=== PATIENT | male | born 1965 | race Two or more races ===

== ENCOUNTER 2024-09-12 13:19 | Outpatient (AMB) | payer MEDICAID, SELFPAY ==
--- NOTE | 2024-09-12 13:30 | ORTHONT_ITS ---
Vital signs 09/12/24 13:31 Height 1.8 m Height Method Stated Weight 99.082 kg Weight Measurement Method Standing Scale BMI 30.4 BP 153/93 H Blood Pressure Source Automatic Cuff Blood Pressure Location Right Upper Arm Position Sitting Respiration 18 Pulse 96 Pulse Source Monitor Temp 96.7 F L Temp Source Temporal Artery Scan Pulse Oximetry (%) 97 Oxygen Delivery Method Room Air Med/Allergies Allergies & Medications Allergies No Known Allergies Allergy (Verified 09/12/24 13:32) Medication Reconciliation atorvastatin 20 mg tablet 20 mg PO QDAY 05/15/24 [History Confirmed 09/12/24] empagliflozin 10 mg tablet (Jardiance) 10 mg PO QAM 05/15/24 [History Confirmed 09/12/24] lisinopril 10 mg tablet 10 mg PO QDAY 05/15/24 [History Confirmed 09/12/24] semaglutide 0.25 mg or 0.5 mg (2 mg/3 mL) subcutaneous pen injector (Ozempic) 0.05 mg subcut QWEEK 05/15/24 [History Confirmed 09/12/24] hydrocodone 5 mg-acetaminophen 325 mg tablet 1 tab PO BID PRN 09/12/24 [History Confirmed 09/12/24] Subjective Visit Visit for: new patient and knee Immunization / Flu Flu Vaccine in the Last 12 Months: No Flu Vaccine Exclusion Criteria: No Exclusion Criteria History of Present Illness Chief complaint: RIGHT KNEE PAIN Patient is a 58-year-old male with bilateral knee pain and valgus arthritis. There is [id number]. We have been treating him nonoperatively for over a year. He has tried physical therapy, over 6 injections, and anti- inflammatories. He previously had a spider bite. It was slow to heal. The wound took over a year for it to heal. It has now healed completely.Patient is a diabetic and he reports his hemoglobin A1c is 6.2. He is getting shoulder surgery in 2 weeks. Personal History Red flag PMH: other (specify) (HISTORY OF DIABETES ) and none (NON SMOKER ) Pain Pain level (0-10): 9 Pain duration: ALL DAY Pain location: inside (medial), outside (lateral), anterior and posterior Pain quality: sharp Pain timing: night Associated signs & symptoms: stiffness Ambulatory data Ambulatory device: none Treatments Improvement with previous injections: No Improvement with PT: No Improvement with NSAIDS: n/a Review of Systems Review of Systems: All systems negative unless otherwise noted in HPI. Exam Exam Patient is in no acute distress and is cooperative with the examination today. Breathing is nonlabored. In no respiratory distress. Bilateral extremities were evaluated and demonstrates sensation intact to light touch. Palpable pedal pulses are present. No significant edema is present. Bilateral hips were examined. The patient has no pain with log roll of the hips. Internal rotation to 30 degrees and external rotation to 30 degrees is painless. Negative FADIR. Bilateral knees are in significant valgus alignment. Range of motion 0 to 100 degrees. She has a wound over the left lateral ankle. This has healed completely at this point. Assessment and Plan Problem List (1) Bilateral knee pain: Status: Acute Plan: Patient is a 58-year-old male with bilateral valgus knee arthritis. He previously had a spider bite and open wound. It is now healed completely. We thus discussed total knee replacement in great detail. We would start on the right first. He told us his hemoglobin A1c is 6.9. WHe is getting shoulder surgery before his knee replacement. We will see him back in approximately 6 weeks once his shoulder is full events. (2) Bilateral primary osteoarthritis of knee: Status: Acute Office Procedures GNS Level of Care Nursing/Assessment Patient Status: Established Patient Nursing Assessment/Reassesment: Medication Reconciliation, Update PMH in EMR and Vital Signs Coordination of Care: Complex Care and Chronic Disease 1-5, Education Complex Pt/Fam, Consent,records obtained, informed consent, Results/Orders obtained and Staff clarify orders Established Patient Charge Established Patient Point Assignment: 95 Established Patient Point Charge: EP Level 3 (80-115) Past Medical History Past Medical History Have you ever been diagnosed with any of the following: Neurological Problems Cerebrovascular Accident (CVA): No Dementia: No Alzheimer's Disease: No Brain Tumor: No Meningitis: No Seizures: No Epilepsy: No Multiple Sclerosis: No Cerebral Palsy: No Amyotrophic Lateral Sclerosis (ALS/Janis Gehrig's): No Guillain-[place] Syndrome: No Paralysis: No Mckeon's Palsy: No Migraine: No Head Trauma: No Cardiology Problems Hypercholesterolemia: Yes Congestive Heart Failure: No Hypertension: Yes Respiratory Problems Chronic Obstructive Pulmonary Disease (COPD): No Smoking: No Smoking Cessation Counseling: No Smoking Exposure: No Tobacco Use: No Stomache/Intestinal Problems Hepatitis: No Genital/Urinary Problems Renal Disease: No Benign Prostatic Hyperplasia: Yes Musculoskeletal Problems Gout: Yes Endocrine Problems Diabetes Mellitus Type 1: No Diabetes Mellitus Type 2: Yes Other Problems Hospitalization: Yes (2020 8 weeks for spider bite left lower leg) Shingles: No Blood Transfusions: No Blood Transfusion Reaction: No Anesthesia Reactions: No Chicken Pox: Yes Cancer: No
[2024-09-12 13:31] VITALS: BP 153/93; PULSE 96; RESP 18; TEMP 35.9; O2SAT 97; BMI 30.4
== END 2024-09-12 14:01 | disposition home or self-care (01) ==
LOC: HODSRG 13:19
PROVIDERS: PCP Physician Assistant Medical; Referring Provider Physician Assistant Medical; Supervising Provider Orthopaedic Surgery Adult Reconstructive Orthopaedic Surgery; Visit Provider Orthopaedic Surgery Adult Reconstructive Orthopaedic Surgery
DX: M25.561 Pain in right knee (principal); M25.562 Pain in left knee; M17.0 Bilateral primary osteoarthritis of knee; I10 Essential (primary) hypertension; E78.00 Pure hypercholesterolemia, unspecified; E11.9 Type 2 diabetes mellitus without complications
CPT/HCPCS: 99213; G0463

== ENCOUNTER 2024-10-24 09:08 | Outpatient (AMB) | payer MEDICAID, SELFPAY ==
[2024-10-24 09:39] VITALS: BP 125/81; PULSE 96; RESP 16; TEMP 36.7; O2SAT 97; BMI 30.4
--- NOTE | 2024-10-24 09:39 | ORTHONT_ITS ---
Vital signs 10/24/24 09:39 Height 1.8 m Height Method Stated Weight 98.94 kg Weight Measurement Method Standing Scale BMI 30.4 BP 125/81 Blood Pressure Source Automatic Cuff Blood Pressure Location Right Upper Arm Position Sitting Respiration 16 Pulse 96 Pulse Source Monitor Temp 98.1 F Temp Source Temporal Artery Scan Pulse Oximetry (%) 97 Oxygen Delivery Method Room Air Med/Allergies Allergies & Medications Allergies No Known Allergies Allergy (Verified 10/24/24 09:40) Medication Reconciliation atorvastatin 20 mg tablet 20 mg PO QDAY 05/15/24 [History Confirmed 10/24/24] empagliflozin 10 mg tablet (Jardiance) 10 mg PO QAM 05/15/24 [History Confirmed 10/24/24] lisinopril 10 mg tablet 10 mg PO QDAY 05/15/24 [History Confirmed 10/24/24] semaglutide 0.25 mg or 0.5 mg (2 mg/3 mL) subcutaneous pen injector (Ozempic) 0.05 mg subcut QWEEK 05/15/24 [History Confirmed 10/24/24] hydrocodone 5 mg-acetaminophen 325 mg tablet 1 tab PO BID PRN 09/12/24 [History Confirmed 10/24/24] Exam Exam Patient is in no acute distress and is cooperative with the examination today. Breathing is nonlabored. In no respiratory distress. Bilateral extremities were evaluated and demonstrates sensation intact to light touch. Palpable pedal pulses are present. No significant edema is present. Bilateral hips were examined. The patient has no pain with log roll of the hips. Internal rotation to 30 degrees and external rotation to 30 degrees is painless. Negative FADIR. Bilateral knees are in significant valgus alignment. Range of motion 0 to 100 degrees. His skin is clean dry and intact intervals well-healed on both sides. The toe ulcer is now gone Assessment and Plan Problem List (1) Bilateral knee pain: Status: Acute Plan: Patient is a 58-year-old male with bilateral valgus knee arthritis. He previously had a spider bite and open wound. It is now healed completely. We thus discussed total knee replacement in great detail. We would start on the right first. He told us his hemoglobin A1c is 6.9. He also recovered well from his shoulder surgery recently. We again discussed total knee replacement in great detail. We discussed that he is Higher rate of infection because of this. The nature and purpose of the total knee replacement, alternative method(s) of treatment, the material risks involved, and the possibility of complications were fully explained to the patient. The patient does NOT have any of the following contraindications to TKA: - Active infection of the knee joint, OR - Active systemic bacteremia, OR - Active skin infection or open wound at surgical site, OR - Neuropathic arthritis, OR - Severe, rapidly progressive neurological disease, OR - Severe medical condition that makes risks of surgery outweigh the potential benefit The patient was told the most common risks and complications associated with a total knee replacement include, but are not limited to: blood clots in the leg, fatal pulmonary embolism, dislocation of the prosthesis, intraoperative and postoperative fractures of the femur or tibia, infection, failure of the prosthesis or grafting materials, complications from anesthesia, reactions to blood transfusions, postoperative leg length inequality, instability of the knee replacement, nerve damage or injury, vascular injury, delayed wound healing, infection, other injury or even . In addition, there are risks associated with anesthesia given during this operation. Also, the patient was told that after undergoing a total knee replacement there may still be persistent pain or disability. The patient was informed that the success of this operation in part depends upon the mechanical devices which are going to be implanted and that these devices can fail or malfunction, and may need to be repaired or replaced and there are no guarantees as to the longevity of this device or its parts and that it or its parts could fail prematurely. The patient was also notified that during the course of surgery, there may be a need to use bone graft from donors, and that any bone graft used will be carefully screened for communicable diseases, including AIDS, hepatitis, Woody-Creutzfeldt, or other diseases, but despite the screening procedures, there is a small chance that they could contract one of these diseases. Finally, the patient was asked to follow completely and fully with all advice and recommended treatments, and that recovery and ultimate outcome are affected by their compliance with recommended treatment. We discussed the risks, benefits and treatment alternatives, and the patient is interested in proceeding with surgery. We will try to set this up as expeditiously as possible. (2) Bilateral primary osteoarthritis of knee: Status: Acute Office Procedures GNS Level of Care Nursing/Assessment Patient Status: Established Patient Nursing Assessment/Reassesment: Medication Reconciliation, Update PMH in EMR and Vital Signs Coordination of Care: Complex Care and Chronic Disease 1-5, Education Complex Pt/Fam, 1 Ins Authorization and Staff clarify orders Established Patient Charge Established Patient Point Assignment: 100 Established Patient Point Charge: EP Level 3 (80-115) MA Intake Visit Data Collection New Patient or Established: Established Patient (seen at [facility] within 3 years) Reason for Visit:: F/U RT KNEE PAIN Seen by Clinical Staff ONLY (RN/MA): No Slps Required: No PCP or OBGYN visit in last 3 months: Yes Questionairres Past Medical History Past Medical History Have you ever been diagnosed with any of the following: Neurological Problems Cerebrovascular Accident (CVA): No Dementia: No Alzheimer's Disease: No Brain Tumor: No Meningitis: No Seizures: No Epilepsy: No Multiple Sclerosis: No Cerebral Palsy: No Amyotrophic Lateral Sclerosis (ALS/Janis Gehrig's): No Guillain-[place] Syndrome: No Paralysis: No Mckeon's Palsy: No Migraine: No Head Trauma: No Cardiology Problems Hypercholesterolemia: Yes Congestive Heart Failure: No Hypertension: Yes Respiratory Problems Chronic Obstructive Pulmonary Disease (COPD): No Smoking: No Smoking Cessation Counseling: No Smoking Exposure: No Tobacco Use: No Stomache/Intestinal Problems Hepatitis: No Genital/Urinary Problems Renal Disease: No Benign Prostatic Hyperplasia: Yes Musculoskeletal Problems Gout: Yes Endocrine Problems Diabetes Mellitus Type 1: No Diabetes Mellitus Type 2: Yes Other Problems Hospitalization: Yes (2020 8 weeks for spider bite left lower leg) Shingles: No Blood Transfusions: No Blood Transfusion Reaction: No Anesthesia Reactions: No Chicken Pox: Yes Cancer: No Subjective Visit Visit for: follow up visit and knee Immunization / Flu Flu Vaccine in the Last 12 Months: No Flu Vaccine Exclusion Criteria: Refused by Patient History of Present Illness Chief complaint: RT KNEE PAIN Date of injury / onset of symptoms: 5 YEARS Anuj is a pleasant 59-year-old male with right knee pain and right knee arthritis. We previously had to cancel his surgery as he had a toe ulcer. He had a history of diabetes and his A1c is currently under 7. He reports that the circle saw operator gave him clearance. I did look at his toes as well as his left leg and it appears to have healed well. We will thus get him set up for surgery again As he is well optimized Pain Pain level (0-10): 8 Pain duration: CONSTANT Pain location: inside (medial), outside (lateral), anterior and posterior Pain quality: sharp and aching Pain timing: night and increases with activity Associated signs & symptoms: stiffness Ambulatory data Ambulatory device: cane (OCCASIONALLY) Treatments Number of previous injections: 4 Improvement with previous injections: Yes Improvement with NSAIDS: n/a Review of Systems Review of Systems: All systems negative unless otherwise noted in HPI.
== END 2024-10-24 10:00 | disposition home or self-care (01) ==
PROVIDERS: PCP Physician Assistant Medical; Referring Provider Physician Assistant Medical; Supervising Provider Orthopaedic Surgery Adult Reconstructive Orthopaedic Surgery; Visit Provider Orthopaedic Surgery Adult Reconstructive Orthopaedic Surgery
DX: M25.562 Pain in left knee (principal); M25.561 Pain in right knee; M21.062 Valgus deformity, not elsewhere classified, left knee; M21.061 Valgus deformity, not elsewhere classified, right knee; M17.0 Bilateral primary osteoarthritis of knee; I10 Essential (primary) hypertension; E78.00 Pure hypercholesterolemia, unspecified; E11.9 Type 2 diabetes mellitus without complications
CPT/HCPCS: 99213; G0463

== ENCOUNTER → 2024-11-13 | Outpatient (CLI) | payer MEDICAID, SELFPAY ==
--- NOTE | 2024-11-13 15:00 | XR_ITS ---
Examination: CT right lower extremity, without contrast. 2-D sagittal reconstructions. 2-D coronal reconstructions. 3-D reconstructions. Date and time of exam:November 13, 2024 1517 hours INDICATIONS: Diagnosis unilateral primary osteoarthritis right knee right knee pain 3 years CTDI: vol (mGy):10.6 DLP: (mGycm):900 Technique: Multiple 1.25 mm axial sections of the right lower extremity without intravenous contrast have been obtained. 2-D sagittal and coronal reconstructions have been obtained. 3-D reconstructions have been obtained. Low dose protocols were performed. One or more of the following dose reduction techniques were used; automated exposure control, adjustment of the mA and/or KV according to patient size, use of iterative reconstruction technique. Findings: Mild osteopenia Mild to moderate narrowing right hip joint No hip fracture or dislocation Advanced tricompartment osteoarthritis, most severe narrowing lateral joint space No fracture or dislocation Mild chronic lateral subluxation patella IMPRESSION: Advanced tricompartment osteoarthritis right knee
== END | disposition home or self-care (01) ==
LOC: CCTX 14:34
PROVIDERS: PCP Physician Assistant Medical; Referring Provider Orthopaedic Surgery Adult Reconstructive Orthopaedic Surgery; Visit Provider Orthopaedic Surgery Adult Reconstructive Orthopaedic Surgery
DX: M17.11 Unilateral primary osteoarthritis, right knee (principal)
CPT/HCPCS: 73700

== ENCOUNTER 2025-08-28 10:56 | Outpatient (AMB) | payer MEDICARE, SELFPAY ==
--- NOTE | 2025-08-28 11:16 | ORTHONT_ITS ---
Vital signs 08/28/25 11:17 Height 1.8 m Height Method Stated Weight 98.543 kg Weight Measurement Method Standing Scale BMI 30.4 BP 132/80 H Blood Pressure Source Automatic Cuff Blood Pressure Location Left Upper Arm Position Sitting Respiration 19 Pulse 84 Pulse Source Monitor Temp 97.5 F Temp Source Temporal Artery Scan Pulse Oximetry (%) 98 Oxygen Delivery Method Room Air Med/Allergies Allergies & Medications Allergies No Known Allergies Allergy (Verified 08/28/25 11:17) Medication Reconciliation atorvastatin 20 mg tablet 20 mg PO QDAY 05/15/24 [History Confirmed 08/28/25] empagliflozin 10 mg tablet (Jardiance) 10 mg PO QAM 05/15/24 [History Confirmed 08/28/25] lisinopril 10 mg tablet 10 mg PO QDAY 05/15/24 [History Confirmed 08/28/25] semaglutide 0.25 mg or 0.5 mg (2 mg/3 mL) subcutaneous pen injector (Ozempic) 0.05 mg subcut QWEEK 05/15/24 [History Confirmed 08/28/25] hydrocodone 5 mg-acetaminophen 325 mg tablet 1 tab PO BID PRN 09/12/24 [History Confirmed 08/28/25] Exam Exam Patient is in no acute distress and is cooperative with the examination today. Breathing is nonlabored. In no respiratory distress. Bilateral extremities were evaluated and demonstrates sensation intact to light touch. Palpable pedal pulses are present. No significant edema is present. Bilateral hips were examined. The patient has no pain with log roll of the hips. Internal rotation to 30 degrees and external rotation to 30 degrees is painless. Negative FADIR. Bilateral knees are in significant valgus alignment. Range of motion 0 to 100 degrees. His skin is clean dry and intact intervals well-healed on both sides. The toe ulcer is now gone Assessment and Plan Problem List (1) Bilateral knee pain: Status: Acute Plan: Patient is a 58-year-old male with bilateral valgus knee arthritis. He previously had a spider bite and open wound. He is having wound healing issues again. We will do bilateral knee injections today Recommend knee cortisone injection as patient would like to proceed with conservative treatment at this time. The risks and benefits of the procedure were reviewed with the patient and patient gave verbal consent to continue with the procedure. Procedure: performed by Dr. Ni Using sterile technique the Right knee was thoroughly prepped with alcohol, and approximately 1 cc of Depo-Medrol 80mg/mL and 4 cc of 0.2% ropivacaine was injected without resistance into the medial tibial femoral joint space. The patient tolerated the procedure. Recommend knee cortisone injection as patient would like to proceed with conservative treatment at this time. The risks and benefits of the procedure were reviewed with the patient and patient gave verbal consent to continue with the procedure. Procedure: performed by Dr. Ni Using sterile technique the leftknee was thoroughly prepped with alcohol, and approximately 1 cc of Depo- Medrol 80mg/mL and 4 cc of 0.2% ropivacaine was injected without resistance into the medial tibial femoral joint space. The patient tolerated the procedure. (2) Bilateral primary osteoarthritis of knee: Status: Acute Office Procedures GNS Level of Care Nursing/Assessment Patient Status: Established Patient Nursing Assessment/Reassesment: Medication Reconciliation, Update PMH in EMR and Vital Signs Coordination of Care: Complex Care and Chronic Disease 1-5, Education Complex Pt/Fam, Consent,records obtained, informed consent, Results/Orders obtained and Staff clarify orders Established Patient Charge Established Patient Point Assignment: 95 Established Patient Point Charge: EP Level 3 (80-115) Surgical Proc/IM SQ injection Minor Surgical Procedure: Yes (BILATERAL KNEE INJECTION) Medication Given Medication Given Medication Given: Yes Documented Dose Given: 2 Route: Infiitration Medication Given Medication Given Medication Given: Yes Documented Dose Given: 8 Route: Infiitration Office Meds methylprednisolone acetate 80 mg/mL suspension for injection Performing Provider: Phong Ni MD Performing Location: [facility] Administered by: Phong Ni MD on 08/28/25 11:25 Dose Route Admin Location Dispensed Lot Number Expiration Date Pack age [facility] Contract Engineer 160 mg intra-articular KNEE 2 mL [id number] 05/27/27 [address]-7 [id number] [employer] ropivacaine (PF) 2 mg/mL (0.2 %) injection solution Performing Provider: Phong Ni MD Performing Location: [facility] Administered by: Phong Ni MD on 08/28/25 11:25 Dose Route Admin Location Dispensed Lot Number Expiration Date Pack age [facility] Contract Engineer 40 mL Infiltration KNEE 40 mL [id number] 11/27/27 17270-337-73 [id number] [facility] Intake Visit Data Collection New Patient or Established: Established Patient (seen at [facility] within 3 years) Reason for Visit:: F/U RT KNEE PAIN Seen by Clinical Staff ONLY (RN/MA): No Hand Binder Cutter Required: No PCP or OBGYN visit in last 3 months: Yes Questionairres Past Medical History Past Medical History Have you ever been diagnosed with any of the following: Neurological Problems Cerebrovascular Accident (CVA): No Dementia: No Alzheimer's Disease: No Brain Tumor: No Meningitis: No Seizures: No Epilepsy: No Multiple Sclerosis: No Cerebral Palsy: No Amyotrophic Lateral Sclerosis (ALS/Janis Gehrig's): No Guillain-[place] Syndrome: No Paralysis: No Mckeon's Palsy: No Migraine: No Head Trauma: No Cardiology Problems Hypercholesterolemia: Yes Congestive Heart Failure: No Hypertension: Yes Respiratory Problems Chronic Obstructive Pulmonary Disease (COPD): No Smoking: No Smoking Cessation Counseling: No Smoking Exposure: No Tobacco Use: No Stomache/Intestinal Problems Hepatitis: No Genital/Urinary Problems Renal Disease: No Benign Prostatic Hyperplasia: Yes Reproductive Problems Breast Cancer: No Fibroids: No Genital Herpes: No Gonorrhea: No Syphilis: No Testicular Cancer: No Musculoskeletal Problems Muscular Dystrophy: No Myasthenia Gravis: No Marfan's Syndrome: No Bone Cancer: No Arthritis: No Rheumatoid Arthritis: No Osteoporosis: No Degenerative Disk Disease: No Gout: Yes Scoliosis: No Carpal Tunnel Syndrome: No Fibromyalgia: No Fractures: No Degenerative Joint Disease: No Osteomyelitis: No Poliovirus: No Head,Eye,Nose,Throat Problems Cataracts: No Glaucoma: No Blind: No Retinal Detachment: No Macular Degeneration: No Chronic Ear Infections: No Deafness: No Eye Prosthesis: No Endocrine Problems Diabetes Mellitus Type 1: No Diabetes Mellitus Type 2: Yes Hypoglycemia: No Tobin's Syndrome: No Rafita's Disease: No Hyperthyroidism: No Hypothyroidism: No Thyroid Cancer: No Parathyroid Disease: No Pituitary Disease: No Systemic Lupus Erythematosus: No Syndrome of Inappropriate Antidiuretic Hormone: No Adrenal Disease: No Graves' Disease: No Other Problems Hospitalization: Yes (2020 8 weeks for spider bite left lower leg) Shingles: No Blood Transfusions: No Blood Transfusion Reaction: No Anesthesia Reactions: No Chicken Pox: Yes Cancer: No Subjective Visit Visit for: follow up visit and knee Immunization / Flu Flu Vaccine in the Last 12 Months: No Flu Vaccine Exclusion Criteria: Refused by Patient History of Present Illness Chief complaint: RT KNEE PAIN Date of injury / onset of symptoms: 5 YEARS Anuj is a pleasant 59-year-old male with right knee pain and right knee arthritis. We previously had to cancel his surgery as he had a toe ulcer. He had a history of diabetes and his A1c is currently under 7. He reports that the lunchroom monitor gave him clearance. I did look at his toes as well as his left leg and it appears to have healed well. We will thus get him set up for surgery a gain As he is well optimized. He has open wounds in his left knee Pain Pain level (0-10): 8 Pain duration: CONSTANT Pain location: inside (medial), outside (lateral), anterior and posterior Pain quality: sharp and aching Pain timing: night and increases with activity Associated signs & symptoms: stiffness Ambulatory data Ambulatory device: cane (OCCASIONALLY) Treatments Number of previous injections: 4 Improvement with previous injections: Yes Improvement with NSAIDS: n/a Review of Systems Review of Systems: All systems negative unless otherwise noted in HPI.
[2025-08-28 11:17] VITALS: BP 132/80; PULSE 84; RESP 19; TEMP 36.4; O2SAT 98; BMI 30.4
== END 2025-08-28 11:58 | disposition home or self-care (01) ==
LOC: HODSRG 10:56
PROVIDERS: PCP Physician Assistant Medical; Referring Provider Physician Assistant Medical; Supervising Provider Orthopaedic Surgery Adult Reconstructive Orthopaedic Surgery; Visit Provider Orthopaedic Surgery Adult Reconstructive Orthopaedic Surgery
DX: M25.562 Pain in left knee (principal); M25.561 Pain in right knee; M17.0 Bilateral primary osteoarthritis of knee; I10 Essential (primary) hypertension; E11.9 Type 2 diabetes mellitus without complications; S81.002A Unspecified open wound, left knee, initial encounter; X58.XXXA Exposure to other specified factors, initial encounter
CPT/HCPCS: 20610; 99213; J1010; J2795; G0463